=== PATIENT | male | born 2000 | race Caucasian/White ===

== ENCOUNTER 2021-01-31 11:11 | Emergency (ER) | payer OTHER | END 2021-01-31 11:55 | disposition home or self-care (01) | LOC: MADERS 11:11 | DX: S30.811A Abrasion of abdominal wall, initial encounter (principal); S50.312A Abrasion of left elbow, initial encounter; S80.811A Abrasion, right lower leg, initial encounter; V49.9XXA Car occupant (driver) (passenger) injured in unspecified traffic accident, initial encounter | CPT/HCPCS: 99284 ==